=== PATIENT | male | born 1935 | race Caucasian/White ===

== ENCOUNTER 2016-05-21 19:08 | Emergency (ER) | payer MEDICARE, BC, OTHER ==
[~2016-05-21 19:08] MED LIST: /AMLO25TA PO; /LAMO20TA PO; ACET500C PO; ARTH1TAB PO; ASPI325T PO; ASPI325T5 PO; ASPI81CH PO; CAPT31TA PO; CILO100T PO; CILO50TA PO; FOLI1TAB2 PO; FOLI1TAB86 PO; IBUP40TA PO; ISOS1TAB12 PO; LAMO200T PO; LISI5TAB PO; MULTTAB4 PO; OXYCO5TA PO; PLET50TA3 PO; TELM1TAB PO; TORS10TA22 PO; VITA100T2 PO; VITA100T92 PO; VITMTA PO
[2016-05-21 20:16] LABS: BASO % 0.3 % (0.0-1.0); EOS # 0.1 K/mm3 (0.0-0.50); EOS % 1.2 % (0.0-3.0); LARGE UNSTAINED CELL # 0.1 K/mm3 (0.0-0.4); LYMPH # 1.1 K/mm3 (1.5-4.5); LYMPH % 11.5 % (24.0-44.0); MEAN CORPUSCULAR HGB CONC 33.6 g/dl (32.0-36.5); MEAN CORPUSCULAR VOLUME 95.2 fl (80.0-96.0); MONO # 0.5 K/mm3 (0.0-0.8); MONO % 5.3 % (0.0-5.0); NEUTROPHILS # 7.5 K/mm3 (1.8-7.7); NEUTROPHILS % 80.6 % (36.0-66.0); PLATELET COUNT, AUTOMATED 255 k/mm3 (150-450); RED CELL DISTRIBUTION WIDTH 12.3 % (11.5-14.5); WHITE BLOOD COUNT 9.2 K/mm3 (4.0-10.0)
[2016-05-21 20:20] LABS: ANION GAP 6 MEQ/L (8-16); BLOOD UREA NITROGEN 24 MG/DL (7-18); CALCIUM LEVEL 9.2 MG/DL (8.8-10.2); CARBON DIOXIDE LEVEL 27 MEQ/L (21-32); CHLORIDE LEVEL 105 MEQ/L (98-107); CREATININE FOR GFR 1.22 MG/DL (0.70-1.30); GLOMERULAR FILTRATION RATE > 60.0 (>35); GLUCOSE, FASTING 168 MG/DL (83-110); SODIUM LEVEL 138 MEQ/L (136-145)
--- NOTE | 2016-05-21 22:40 | REPUSA ---
CT of the head Clinical history: syncope. Comparison: 02/26/2016. Protocol: Multiple axial CT images obtained with 5 mm slice thickness were obtained through the head without administration of contrast. Findings: A right frontal subcabinet terminates in the frontal horn of the right lateral ventricle. T he ventricles and sulci are symmetric but prominent in size bilaterally. Encephalomalacia in the left middle cerebral artery distribution is stable. There are periventricular areas of low attenuation th roughout the deep white matter. There is no evidence of acute hemorrhage or infarct. There is no midl ine shift, mass effect, or extra-axial fluid collection. The osseous structures are unremarkable. The visualized paranasal sinuses and mastoid air cells are clear. Impression: No acute hemorrhage or infarct. 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
[2016-05-21] MEDS ORDERED: lamoTRIgine 25 MG TAB As Ordered ONE (22:58)
--- NOTE | 2016-05-22 00:56 | EDDOCDS ---
Physician Documentation [facility] Name: Geovani Escalante Age: 80 yrs Sex: Male : 1935 Arrival Date: 05/21/2016 Time: 19:08 Bed 4 Private MD: Celestino Marsh A. Disposition: 05/22/16 00:30 Discharged to Home/Self Care. Impression: Epilepsy, unspecified. - Condition is Stable. - Medication Reconciliation, Local Pharmacy Hours form. - Follow up: Ron Peguero; When: 1 - 2 days; Reason: Recheck today's complaints. - Problem is chronic. - Symptoms have improved. Historical: - Allergies: no known allergies; - Home Meds: 1. aspirin 81 mg Oral TbEC 1 tab once daily 2. folic acid 1 mg Oral tab 1 tab once daily 3. telmisartan 40 mg oral tab 1 tab nightly 4. lamotrigine 200 mg Oral tab 1 tab 2 times per day 5. 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 No barriers to communication noted, The patient speaks fluent [place]. - Family history: Not pertinent. - : The pt / caregiver states he / she is not on anticoagulants. Home medication list is obtained from the patient. - Exposure Risk Screening:: None identified. Vital Signs: 05/21 19:23 BP 198 / 85; Pulse 72; Resp 18; Temp 96.8(O); Pulse Ox 98% on R/A; Weight 68.95 kg / ld5 152.01 lbs (R); Height 5 ft. 10 in. (177.80 cm) (R); Pain 0/10; 19:50 BP 178 / 71 (auto/); ld5 19:50 Pulse 100 MON; Pulse Ox 97% ; ld5 20:05 BP 142 / 54 (auto/); ld5 20:05 Pulse 64 MON; Pulse Ox 96% ; ld5 20:35 BP 118 / 59 (auto/); ld5 20:35 Pulse 60 MON; Pulse Ox 94% ; ld5 20:50 BP 134 / 63 (auto/); ld5 20:50 Pulse 60 MON; Pulse Ox 95% ; ld5 21:05 BP 125 / 56 (auto/); ld5 21:05 Pulse 56 MON; Pulse Ox 96% ; ld5 21:20 BP 125 / 62 (auto/); ld5 21:20 Pulse 56 MON; Pulse Ox 96% ; ld5 21:35 Pulse 82 MON; Pulse Ox 95% ; ld5 21:35 BP 155 / 74 (auto/); ld5 21:50 BP 140 / 74 (auto/); ld5 21:53 Pulse 62 MON; Pulse Ox 98% ; ld5 22:05 Pulse 60 MON; Pulse Ox 98% ; ld5 22:05 BP 152 / 69 (auto/); ld5 22:20 Pulse 64 MON; Pulse Ox 98% ; ld5 22:20 BP 160 / 67 (auto/); ld5 22:35 BP 152 / 72 (auto/); ld5 22:36 Pulse 62 MON; Pulse Ox 98% ; ld5 22:50 Pulse 60 MON; Pulse Ox 96% ; ld5 22:50 BP 144 / 69 (auto/); ld5 23:05 BP 138 / 76 (auto/); ld5 23:05 Pulse 64 MON; Resp 18; Temp 97.1(O); Pulse Ox 95% ; Pain 0/10; ld5 23:20 BP 149 / 71 (auto/); ld5 23:20 Pulse 60 MON; Pulse Ox 95% ; ld5 23:35 BP 113 / 78 (auto/); ld5 23:50 BP 151 / 69 (auto/); ld5 23:50 Pulse 56 MON; ld5 05/22 00:05 BP 154 / 74 (auto/); ld5 00:05 Pulse 56 MON; ld5 00:50 BP 152 / 78; Pulse 70; Resp 18; Temp 97.2; Pulse Ox 95% on R/A; ld5 05/21 19:23 Body Mass Index 21.81 (68.95 kg, 177.80 cm) ld5 MDM: 05/21 19:19 ECG WITH READING ER PHYS+CARDIAG ordered. EDMS 20:02 Insurance Solicitor/Pulse Ox/q 30 min VS ordered. may 20:02 IV Saline Lock ordered. may 21: Rhythm Strip to chart ordered. may 21: Undress patient appropriately for examination ordered. may 20:04 Basic Metabolic Profile Ordered. EDMS 20:04 CBC with Diff Ordered. EDMS 20:04 Cardiac Injury Profile Ordered. EDMS 20:04 Troponin Ordered. EDMS 20:19 CT Head Without Contrast Ordered. EDMS 21:22 Basic Metabolic Profile Reviewed. cs11 21:22 CBC with Diff Reviewed. cs11 21:22 Cardiac Injury Profile Reviewed. cs11 21:22 Troponin Reviewed. cs11 21:22 NS 0.9% 500 ml IV at bolus once ordered. cs11 22:45 lamoTRIgine 100 mg PO once ordered. cs11 23:32 Financial registration complete. [facility] 05/22 00:28 CT Head Without Contrast Reviewed. cs11 Administered Medications: 05/21 21:38 Drug: NS 0.9% 500 ml [sodium chloride 0.9 % intravenous solution] Route: IV; Rate: ld5 bolus; Site: right forearm; 23:06 Follow up: IV Status: Completed infusion; IV Intake: 500ml ld5 23:06 Drug: lamoTRIgine 100 mg [lamotrigine 25 mg tablet (4 tabs)] Route: PO; ld5 Signatures: Dispatcher [employer] EDLucia Palacios RN RN jan Peters, Mary, RN RN mcp Dickerson, Laura, RN RN ld5 Ollie Pritchett DO DO [facility] Stefanie Beasley [facility] MTDD
--- NOTE | 2016-05-22 00:57 | EDDOCDS ---
Nurse's Notes [facility] Name: Geovani Escalante Age: 80 yrs Sex: Male : 1935 Arrival Date: 05/21/2016 Time: 19:08 Bed 4 Private MD: Celestino Marsh A. Diagnosis: Epilepsy, unspecified Presentation: 05/21 19:18 Presenting complaint: EMS states: Was on toilet having bowel movement--after 30 minutes mcp was unable to move but remembers everything that happened. Has history of seizures and stroke in past. FSBS--181. SL established in right wrist #20. While enroute had 8 sec episode of Vtach but pt denies any chest pain or SOB at the time of vtach. Adult Sepsis Screening: The patient does not have new or worsening altered mentation. Patient's respiratory rate is less than 22. Systolic blood pressure is greater than 100. Patient has a qSOFA score of 0- Negative Sepsis Screen. Suicide/Homicide risk assessment- the patient denies having any suicidal and/or homicidal ideations and does not present with any other emotional, behavioral or mental health complaints. Status: Patient is not a field service specialist or dependent. Transition of care: patient was not received from another setting of care. 19:18 Acuity: [facility]IL[facility] Level 2 [facility] 19:18 Method Of Arrival: Ambulance [facility] Triage Assessment: 19:28 General: Appears in no apparent distress, Behavior is cooperative. Pain: Denies pain. [facility] Historical: - Allergies: no known allergies; - Home Meds: 1. aspirin 81 mg Oral TbEC 1 tab once daily 2. folic acid 1 mg Oral tab 1 tab once daily 3. telmisartan 40 mg oral tab 1 tab nightly 4. lamotrigine 200 mg Oral tab 1 tab 2 times per day 5. 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 No barriers to communication noted, The patient speaks fluent Sami. - Family history: Not pertinent. - : The pt / caregiver states he / she is not on anticoagulants. Home medication list is obtained from the patient. - Exposure Risk Screening:: None identified. Screenin/21 00:50 Screening information is obtained from the patient, family members. Fall risk: At risk ld5 due to gait disturbance. Assistance ADL's: Requires assistance with meal preparation, this assistance is provided by family members, medication administration, assistance is provided by family members. Abuse/DV Screen: The patient / caregiver reports he/she is: not in a situation that causes fear, pain or injury. Nutritional screening: No deficits noted. Advance Directives: There is no Power of Plate And Frame Filter Operator. home support is adequate. Assessment: 05/21 19:29 General: Appears in no apparent distress, comfortable, Behavior is cooperative. Pain: mcp Denies pain. Neurological: Level of Consciousness is awake, alert, Oriented to person, place, Hydroelectric Plant Maintainer are equal bilaterally Moves all extremities. Speech is normal. Cardiovascular: Rhythm is sinus rhythm No ectopy. Respiratory: Airway is patent Respiratory effort is even, unlabored, Breath sounds are clear bilaterally. Derm: Skin is pink, warm & dry. 20:15 General: Appears in no apparent distress, Behavior is cooperative. Pain: Denies pain. ld5 Neurological: Level of Consciousness is awake, alert, obeys commands. Respiratory: Airway is patent Respiratory effort is even, unlabored. GI: Abdomen is non- distended Bowel sounds present X 4 quads. Denies nausea, vomiting. Derm: skin tear to right elbow area, covered with kerlix. 21:19 General: Pt resting in bed with eyes closed. Family members at bedside. Awaiting ld5 results. Will continue to monitor. 21:38 General: Fluids started per orders. POC discussed with pt and family. Pt repositioned ld5 for comfort. Call santos within reach. Will continue to monitor. 22:30 General: Pt appears to be sleeping. Respirations easy and unlabored. Will continue to ld5 monitor. 23:22 General: Pt medicated per orders. Tolerated well. Call santos within reach. Will continue ld5 to monitor. 05/22 00:09 General: Pt appears to be sleeping. Easily arouses to voice. Will continue to monitor. ld5 00:50 General: Appears in no apparent distress, Behavior is cooperative, pleasant. General: ld5 Discharge discussed with pt and family members. Will continue to monitor. Pain: Denies pain. Neurological: Level of Consciousness is awake. Respiratory: Airway is patent Respiratory effort is even, unlabored. Vital Signs: 05/21 19:23 BP 198 / 85; Pulse 72; Resp 18; Temp 96.8(O); Pulse Ox 98% on R/A; Weight 68.95 kg (R); ld5 Height 5 ft. 10 in. (177.80 cm) (R); Pain 0/10; 19:50 BP 178 / 71 (auto/); ld5 19:50 Pulse 100 MON; Pulse Ox 97% ; ld5 20:05 BP 142 / 54 (auto/); ld5 20:05 Pulse 64 MON; Pulse Ox 96% ; ld5 20:35 BP 118 / 59 (auto/); ld5 20:35 Pulse 60 MON; Pulse Ox 94% ; ld5 20:50 BP 134 / 63 (auto/); ld5 20:50 Pulse 60 MON; Pulse Ox 95% ; ld5 21:05 BP 125 / 56 (auto/); ld5 21:05 Pulse 56 MON; Pulse Ox 96% ; ld5 21:20 BP 125 / 62 (auto/); ld5 21:20 Pulse 56 MON; Pulse Ox 96% ; ld5 21:35 Pulse 82 MON; Pulse Ox 95% ; ld5 21:35 BP 155 / 74 (auto/); ld5 21:50 BP 140 / 74 (auto/); ld5 21:53 Pulse 62 MON; Pulse Ox 98% ; ld5 22:05 Pulse 60 MON; Pulse Ox 98% ; ld5 22:05 BP 152 / 69 (auto/); ld5 22:20 Pulse 64 MON; Pulse Ox 98% ; ld5 22:20 BP 160 / 67 (auto/); ld5 22:35 BP 152 / 72 (auto/); ld5 22:36 Pulse 62 MON; Pulse Ox 98% ; ld5 22:50 Pulse 60 MON; Pulse Ox 96% ; ld5 22:50 BP 144 / 69 (auto/); ld5 23:05 BP 138 / 76 (auto/); ld5 23:05 Pulse 64 MON; Resp 18; Temp 97.1(O); Pulse Ox 95% ; Pain 0/10; ld5 23:20 BP 149 / 71 (auto/); ld5 23:20 Pulse 60 MON; Pulse Ox 95% ; ld5 23:35 BP 113 / 78 (auto/); ld5 23:50 BP 151 / 69 (auto/); ld5 23:50 Pulse 56 MON; ld5 05/22 00:05 BP 154 / 74 (auto/); ld5 00:05 Pulse 56 MON; ld5 00:50 BP 152 / 78; Pulse 70; Resp 18; Temp 97.2; Pulse Ox 95% on R/A; ld5 05/21 19:23 Body Mass Index 21.81 (68.95 kg, 177.80 cm) ld5 Vitals: 05/21 19:23 Log In Time N/A - ambulance arrival. ld5 ED Course: 19:09 Patient visited by Valeria Greene, Seam Finisher. ml3 19:09 Celestino Marsh is Private Physician. ml3 19:09 Patient moved to Waiting ml3 19:18 Patient moved to 4 ml3 19:23 Triage Initiated mcp 19:29 Patient visited by Gabe Healy PCA. kb5 19:29 EKG done. (by ED staff). Reviewed by Ollie Pritchett DO. kb5 19:30 Maintain field IV. Dressing intact. Good blood return noted. Site clean & dry. Gauge & mcp site: #20 right wrist. 19:31 Patient visited by Manuela Garcia RN. mcp 19:31 The patient / caregiver is instructed regarding the plan of care and ED course. Patient mcp has correct armband on for positive identification. Placed in gown. Bed in low position. Call light in reach. Side rails up X2. ekg monitor tech on. Pulse ox on. NIBP on. 20:03 Ollie Pritchett DO is Attending Physician. cs11 20:03 Patient visited by Ollie Pritchett DO. cs11 21:09 Patient visited by Deja Alonzo RN. ld5 21:19 Patient visited by Deja Alonzo,YG. ld5 21:39 Patient visited by Deja Alonzo,RN. ld5 22:44 Patient visited by Deja Alonzo,YG. ld5 23:22 Patient visited by Deja Alnozo,YG. ld5 23:26 CT Head Without Contrast Returned. EDMS 05/22 00:10 Patient visited by Deja Alonzo,YG. ld5 00:29 Ron Peguero is Referral Physician. cs11 00:50 Discontinued lock intact, bleeding controlled, pressure dressing applied, No ld5 redness/swelling at site. No procedures done that require assistance. 00:52 Patient visited by Deja Alonzo RN. ld5 00:55 Patient visited by Deja Alonzo RN. ld5 Administered Medications: 05/21 21:38 Drug: NS 0.9% 500 ml [sodium chloride 0.9 % intravenous solution] Route: IV; Rate: ld5 bolus; Site: right forearm; 23:06 Follow up: IV Status: Completed infusion; IV Intake: 500ml ld5 23:06 Drug: lamoTRIgine 100 mg [lamotrigine 25 mg tablet (4 tabs)] Route: PO; ld5 Intake: 23:06 IV: 500.00ml; Total: 500.00ml. ld5 Order Results: Lab Order: Basic Metabolic Profile; SPEC'M 05/21/16 19:35 Test: GLUCOSE, FASTING; Value: 168; Range: 83-110; Abnormal: Above high normal; Units: MG/DL; Status: F Test: BLOOD UREA NITROGEN; Value: 24; Range: 7-18; Abnormal: Above high normal; Units: MG/DL; Status: F Test: CREATININE FOR GFR; Value: 1.22; Range: 0.70-1.30; Units: MG/DL; Status: F Test: GLOMERULAR FILTRATION RATE; Value: > 60.0; Range: >35; Status: F Test: SODIUM LEVEL; Value: 138; Range: 136-145; Units: MEQ/L; Status: F Test: POTASSIUM SERUM; Value: 5.0; Range: 3.5-5.1; Units: MEQ/L; Status: F Test: CHLORIDE LEVEL; Value: 105; Range: 98-107; Units: MEQ/L; Status: F Test: CARBON DIOXIDE LEVEL; Value: 27; Range: 21-32; Units: MEQ/L; Status: F Test: ANION GAP; Value: 6; Range: 8-16; Abnormal: Below low normal; Units: MEQ/L; Status: F Test: CALCIUM LEVEL; Value: 9.2; Range: 8.8-10.2; Units: MG/DL; Status: F Test Note: ; Units are mL/min/1.73 m2 Chronic Kidney Disease Staging per NKF: Stage I & II GFR >=60 Normal to Mildly Decreased Stage III GFR 30-59 Moderately Decreased Stage IV GFR 15-29 Severely Decreased Stage V GFR <15 Very Little GFR Left ESRD GFR <15 on BRICK PAVING CHECKER Lab Order: CBC with Diff; SPEC'M 05/21/16 19:35 Test: WHITE BLOOD COUNT; Value: 9.2; Range: 4.0-10.0; Units: K/mm3; Status: F Test: RED BLOOD COUNT; Value: 4.19; Range: 4.30-6.10; Abnormal: Below low normal; Units: M/mm3; Status: F Test: HEMOGLOBIN; Value: 13.4; Range: 14.0-18.0; Abnormal: Below low normal; Units: g/dl; Status: F Test: HEMATOCRIT; Value: 39.9; Range: 42.0-52.0; Abnormal: Below low normal; Units: %; Status: F Test: MEAN CORPUSCULAR VOLUME; Value: 95.2; Range: 80.0-96.0; Units: fl; Status: F Test: MEAN CORPUSCULAR HEMOGLOBIN; Value: 32.0; Range: 27.0-33.0; Units: pg; Status: F Test: MEAN CORPUSCULAR HGB CONC; Value: 33.6; Range: 32.0-36.5; Units: g/dl; Status: F Test: RED CELL DISTRIBUTION WIDTH; Value: 12.3; Range: 11.5-14.5; Units: %; Status: F Test: PLATELET COUNT, AUTOMATED; Value: 255; Range: 150-450; Units: k/mm3; Status: F Test: NEUTROPHILS %; Value: 80.6; Range: 36.0-66.0; Abnormal: Above high normal; Units: %; Status: F Test: LYMPH %; Value: 11.5; Range: 24.0-44.0; Abnormal: Below low normal; Units: %; Status: F Test: MONO %; Value: 5.3; Range: 0.0-5.0; Abnormal: Above high normal; Units: %; Status: F Test: EOS %; Value: 1.2; Range: 0.0-3.0; Units: %; Status: F Test: BASO %; Value: 0.3; Range: 0.0-1.0; Units: %; Status: F Test: LARGE UNSTAINED CELL %; Value: 1.0; Range: 0.0-4.0; Units: %; Status: F Test: NEUTROPHILS #; Value: 7.5; Range: 1.8-7.7; Units: K/mm3; Status: F Test: LYMPH #; Value: 1.1; Range: 1.5-4.5; Abnormal: Below low normal; Units: K/mm3; Status: F Test: MONO #; Value: 0.5; Range: 0.0-0.8; Units: K/mm3; Status: F Test: EOS #; Value: 0.1; Range: 0.0-0.50; Units: K/mm3; Status: F Test: BASO #; Value: 0.0; Range: 0.0-0.2; Units: K/mm3; Status: F Test: LARGE UNSTAINED CELL #; Value: 0.1; Range: 0.0-0.4; Units: K/mm3; Status: F Lab Order: Cardiac Injury Profile; [facility] 05/21/16 19:35 Test: CPK CREATINE PHOSPHOKINASE; Value: 135; Range: 39-308; Units: U/L; Status: F Test: CK-MB VALUE MASS; Value: 2.1; Range: 0.0-3.6; Units: NG/ML; Status: F Test: MB/CK RELATIVE INDEX; Value: 1.55; Range: < OR =4; Status: F Test Note: ; DIAGNOSIS CRITERIA MMB ng/ml Relative Index (RI) NON-AMI < or = 5 N/A WIGGINS ZONE > 5 < or = 4 AMI > 5 > 4 Lab Order: Troponin; SPEC' 05/21/16 19:35 Test: TROPONIN I; Value: < 0.02; Range: < 0.10; Units: NG/ML; Status: F Test Note: ; Troponin I Reference Interval for [email or web address] LOCI: 99th Percentile= 0.00-0.045 ng/ml Risk Stratification: <= 0.10 ng/ml Decreased Risk for Adverse Clinical Events. 0.10-1.50 ng/ml Increased Risk for Adverse Clinical Events. Evaluation of additional criterion and/or repeat testing in 2-6 hours is suggested to rule out myocardial damage. >= 1.50 ng/ml Indicative of Myocardial Injury. Radiology Order: CT Head Without Contrast Test: CT Head Without Contrast REASON FOR EXAMINATION: Syncope; ; CT of the head; Clinical history: syncope.; Comparison: 02/26/2016.; Protocol: Multiple axial CT images obtained with 5 mm slice thickness were obtained through the head; without administration of contrast.; Findings: A right frontal subcabinet terminates in the frontal horn of the right lateral ventricle. T; he ventricles and sulci are symmetric but prominent in size bilaterally. Encephalomalacia in the left; middle cerebral artery distribution is stable. There are periventricular areas of low attenuation th; roughout the deep white matter. There is no evidence of acute hemorrhage or infarct. There is no midl; ine shift, mass effect, or extra-axial fluid collection. The osseous structures are unremarkable. The; visualized paranasal sinuses and mastoid air cells are clear.; Impression: No acute hemorrhage or infarct. 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 cs11 00:50 Discharge Assessment: Patient awake, alert and oriented x 3. No cognitive and/or ld5 functional deficits noted. Patient verbalized understanding of disposition instructions. patient administered narcotics - no. The following High Risk Discharge criteria are identified: None. Discharged to home with family. Condition: stable. Discharge instructions given to patient, family, Instructed on discharge instructions, follow up and referral plans. Demonstrated understanding of instructions, Pt was receptive of discharge instructions/ teaching. CT Study completed. Property :Personal belongings accompany Pt. 00:55 Patient left the ED. ld5 Signatures: Dispatcher [employer] EDMS Manuela Garcia, RN RN Valeria Subramanian, Seam Finisher Unit ml3 Gabe Healy, ESTHER PRIVATE CLIENT ADVISOR [email or web address] Deja Alonzo RN RN ld5 Ollie Pritchett DO DO cs11 MTDD
--- NOTE | 2016-05-22 08:15 | ECGEPIP ---
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
--- NOTE | 2016-05-24 01:57 | EDDOCDS ---
Nurse's Notes [facility] Name: Morgan Rodas Age: 80 yrs Sex: Male : 1935 Arrival Date: 05/21/2016 Time: 19:08 Bed 4 Private MD: Celestino Marsh A. Diagnosis: Epilepsy, unspecified Presentation: 05/21 19:18 Presenting complaint: EMS states: Was on toilet having bowel movement--after 30 minutes mcp was unable to move but remembers everything that happened. Has history of seizures and stroke in past. FSBS--181. SL established in right wrist #20. While enroute had 8 sec episode of Vtach but pt denies any chest pain or SOB at the time of vtach. Adult Sepsis Screening: The patient does not have new or worsening altered mentation. Patient's respiratory rate is less than 22. Systolic blood pressure is greater than 100. Patient has a qSOFA score of 0- Negative Sepsis Screen. Suicide/Homicide risk assessment- the patient denies having any suicidal and/or homicidal ideations and does not present with any other emotional, behavioral or mental health complaints. Status: Patient is not a youth services librarian or dependent. Transition of care: patient was not received from another setting of care. 19:18 Acuity: WILBUR Level 2 [facility] 19:18 Method Of Arrival: Ambulance [facility] Triage Assessment: 19:28 General: Appears in no apparent distress, Behavior is cooperative. Pain: Denies pain. [facility] Historical: - Allergies: no known allergies; - Home Meds: 1. aspirin 81 mg Oral TbEC 1 tab once daily 2. folic acid 1 mg Oral tab 1 tab once daily 3. telmisartan 40 mg oral tab 1 tab nightly 4. lamotrigine 200 mg Oral tab 1 tab 2 times per day 5. 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 No barriers to communication noted, The patient speaks fluent Persian. - Family history: Not pertinent. - : The pt / caregiver states he / she is not on anticoagulants. Home medication list is obtained from the patient. - Exposure Risk Screening:: None identified. Screenin/21 00:50 Screening information is obtained from the patient, family members. Fall risk: At risk ld5 due to gait disturbance. Assistance ADL's: Requires assistance with meal preparation, this assistance is provided by family members, medication administration, assistance is provided by family members. Abuse/DV Screen: The patient / caregiver reports he/she is: not in a situation that causes fear, pain or injury. Nutritional screening: No deficits noted. Advance Directives: There is no Power of Instructor Product Inspection. home support is adequate. Assessment: 05/21 19:29 General: Appears in no apparent distress, comfortable, Behavior is cooperative. Pain: mcp Denies pain. Neurological: Level of Consciousness is awake, alert, Oriented to person, place, Accounts Payable Or Receivable Clerk are equal bilaterally Moves all extremities. Speech is normal. Cardiovascular: Rhythm is sinus rhythm No ectopy. Respiratory: Airway is patent Respiratory effort is even, unlabored, Breath sounds are clear bilaterally. Derm: Skin is pink, warm & dry. 20:15 General: Appears in no apparent distress, Behavior is cooperative. Pain: Denies pain. ld5 Neurological: Level of Consciousness is awake, alert, obeys commands. Respiratory: Airway is patent Respiratory effort is even, unlabored. GI: Abdomen is non- distended Bowel sounds present X 4 quads. Denies nausea, vomiting. Derm: skin tear to right elbow area, covered with kerlix. 21:19 General: Pt resting in bed with eyes closed. Family members at bedside. Awaiting ld5 results. Will continue to monitor. 21:38 General: Fluids started per orders. POC discussed with pt and family. Pt repositioned ld5 for comfort. Call santos within reach. Will continue to monitor. 22:30 General: Pt appears to be sleeping. Respirations easy and unlabored. Will continue to ld5 monitor. 23:22 General: Pt medicated per orders. Tolerated well. Call santos within reach. Will continue ld5 to monitor. 05/22 00:09 General: Pt appears to be sleeping. Easily arouses to voice. Will continue to monitor. ld5 00:50 General: Appears in no apparent distress, Behavior is cooperative, pleasant. General: ld5 Discharge discussed with pt and family members. Will continue to monitor. Pain: Denies pain. Neurological: Level of Consciousness is awake. Respiratory: Airway is patent Respiratory effort is even, unlabored. Vital Signs: 05/21 19:23 BP 198 / 85; Pulse 72; Resp 18; Temp 96.8(O); Pulse Ox 98% on R/A; Weight 68.95 kg (R); ld5 Height 5 ft. 10 in. (177.80 cm) (R); Pain 0/10; 19:50 BP 178 / 71 (auto/); ld5 19:50 Pulse 100 MON; Pulse Ox 97% ; ld5 20:05 BP 142 / 54 (auto/); ld5 20:05 Pulse 64 MON; Pulse Ox 96% ; ld5 20:35 BP 118 / 59 (auto/); ld5 20:35 Pulse 60 MON; Pulse Ox 94% ; ld5 20:50 BP 134 / 63 (auto/); ld5 20:50 Pulse 60 MON; Pulse Ox 95% ; ld5 21:05 BP 125 / 56 (auto/); ld5 21:05 Pulse 56 MON; Pulse Ox 96% ; ld5 21:20 BP 125 / 62 (auto/); ld5 21:20 Pulse 56 MON; Pulse Ox 96% ; ld5 21:35 Pulse 82 MON; Pulse Ox 95% ; ld5 21:35 BP 155 / 74 (auto/); ld5 21:50 BP 140 / 74 (auto/); ld5 21:53 Pulse 62 MON; Pulse Ox 98% ; ld5 22:05 Pulse 60 MON; Pulse Ox 98% ; ld5 22:05 BP 152 / 69 (auto/); ld5 22:20 Pulse 64 MON; Pulse Ox 98% ; ld5 22:20 BP 160 / 67 (auto/); ld5 22:35 BP 152 / 72 (auto/); ld5 22:36 Pulse 62 MON; Pulse Ox 98% ; ld5 22:50 Pulse 60 MON; Pulse Ox 96% ; ld5 22:50 BP 144 / 69 (auto/); ld5 23:05 BP 138 / 76 (auto/); ld5 23:05 Pulse 64 MON; Resp 18; Temp 97.1(O); Pulse Ox 95% ; Pain 0/10; ld5 23:20 BP 149 / 71 (auto/); ld5 23:20 Pulse 60 MON; Pulse Ox 95% ; ld5 23:35 BP 113 / 78 (auto/); ld5 23:50 BP 151 / 69 (auto/); ld5 23:50 Pulse 56 MON; ld5 05/22 00:05 BP 154 / 74 (auto/); ld5 00:05 Pulse 56 MON; ld5 00:50 BP 152 / 78; Pulse 70; Resp 18; Temp 97.2; Pulse Ox 95% on R/A; ld5 05/21 19:23 Body Mass Index 21.81 (68.95 kg, 177.80 cm) ld5 Vitals: 05/21 19:23 Log In Time N/A - ambulance arrival. ld5 ED Course: 19:09 Patient visited by Valeria Greene, Nurse General Duty. ml3 19:09 Celestino Marsh is Private Physician. ml3 19:09 Patient moved to Waiting ml3 19:18 Patient moved to 4 ml3 19:23 Triage Initiated mcp 19:29 Patient visited by Gabe Healy PCA. kb5 19:29 EKG done. (by ED staff). Reviewed by Ollie Miller DO. kb5 19:30 Maintain field IV. Dressing intact. Good blood return noted. Site clean & dry. Gauge & mcp site: #20 right wrist. 19:31 Patient visited by Manuela Garcia RN. mcp 19:31 The patient / caregiver is instructed regarding the plan of care and ED course. Patient mcp has correct armband on for positive identification. Placed in gown. Bed in low position. Call light in reach. Side rails up X2. monitoring engineer on. Pulse ox on. NIBP on. 20:03 Ollie Miller DO is Attending Physician. cs11 20:03 Patient visited by Ollie Miller DO. cs11 21:09 Patient visited by Deja Alonzo RN. ld5 21:19 Patient visited by Deja Alonzo,YG. ld5 21:39 Patient visited by Deja Alonzo,RN. ld5 22:44 Patient visited by Deja Alonzo,YG. ld5 23:22 Patient visited by Deja Alonzo,YG. ld5 23:26 CT Head Without Contrast Returned. EDMS 05/22 00:10 Patient visited by Deja Alonzo,YG. ld5 00:29 Ron Peguero is Referral Physician. cs11 00:50 Discontinued lock intact, bleeding controlled, pressure dressing applied, No ld5 redness/swelling at site. No procedures done that require assistance. 00:52 Patient visited by Deja Alonzo RN. ld5 00:55 Patient visited by Deja Alonzo RN. ld5 01:00 [facility] Payment Agreement was scanned into [employer] and attached to record. [facility] 08:42 EKG-ADULT Returned. EDMS 10:45 T-Sheet-- Draft Copy was scanned into [employer] and attached to record. 10:46 ECG/EKG was scanned into [employer] and attached to record. gb Administered Medications: 05/21 21:38 Drug: NS 0.9% 500 ml [sodium chloride 0.9 % intravenous solution] Route: IV; Rate: ld5 bolus; Site: right forearm; 23:06 Follow up: IV Status: Completed infusion; IV Intake: 500ml ld5 23:06 Drug: lamoTRIgine 100 mg [lamotrigine 25 mg tablet (4 tabs)] Route: PO; ld5 Intake: 23:06 IV: 500.00ml; Total: 500.00ml. ld5 Order Results: Lab Order: Basic Metabolic Profile; SPEC'M 05/21/16 19:35 Test: GLUCOSE, FASTING; Value: 168; Range: 83-110; Abnormal: Above high normal; Units: MG/DL; Status: F Test: BLOOD UREA NITROGEN; Value: 24; Range: 7-18; Abnormal: Above high normal; Units: MG/DL; Status: F Test: CREATININE FOR GFR; Value: 1.22; Range: 0.70-1.30; Units: MG/DL; Status: F Test: GLOMERULAR FILTRATION RATE; Value: > 60.0; Range: >35; Status: F Test: SODIUM LEVEL; Value: 138; Range: 136-145; Units: MEQ/L; Status: F Test: POTASSIUM SERUM; Value: 5.0; Range: 3.5-5.1; Units: MEQ/L; Status: F Test: CHLORIDE LEVEL; Value: 105; Range: 98-107; Units: MEQ/L; Status: F Test: CARBON DIOXIDE LEVEL; Value: 27; Range: 21-32; Units: MEQ/L; Status: F Test: ANION GAP; Value: 6; Range: 8-16; Abnormal: Below low normal; Units: MEQ/L; Status: F Test: CALCIUM LEVEL; Value: 9.2; Range: 8.8-10.2; Units: MG/DL; Status: F Test Note: ; Units are mL/min/1.73 m2 Chronic Kidney Disease Staging per NKF: Stage I & II GFR >=60 Normal to Mildly Decreased Stage III GFR 30-59 Moderately Decreased Stage IV GFR 15-29 Severely Decreased Stage V GFR <15 Very Little GFR Left ESRD GFR <15 on TELEPHONE STATION REPAIRER Lab Order: CBC with Diff; SPEC'M 05/21/16 19:35 Test: WHITE BLOOD COUNT; Value: 9.2; Range: 4.0-10.0; Units: K/mm3; Status: F Test: RED BLOOD COUNT; Value: 4.19; Range: 4.30-6.10; Abnormal: Below low normal; Units: M/mm3; Status: F Test: HEMOGLOBIN; Value: 13.4; Range: 14.0-18.0; Abnormal: Below low normal; Units: g/dl; Status: F Test: HEMATOCRIT; Value: 39.9; Range: 42.0-52.0; Abnormal: Below low normal; Units: %; Status: F Test: MEAN CORPUSCULAR VOLUME; Value: 95.2; Range: 80.0-96.0; Units: fl; Status: F Test: MEAN CORPUSCULAR HEMOGLOBIN; Value: 32.0; Range: 27.0-33.0; Units: pg; Status: F Test: MEAN CORPUSCULAR HGB CONC; Value: 33.6; Range: 32.0-36.5; Units: g/dl; Status: F Test: RED CELL DISTRIBUTION WIDTH; Value: 12.3; Range: 11.5-14.5; Units: %; Status: F Test: PLATELET COUNT, AUTOMATED; Value: 255; Range: 150-450; Units: k/mm3; Status: F Test: NEUTROPHILS %; Value: 80.6; Range: 36.0-66.0; Abnormal: Above high normal; Units: %; Status: F Test: LYMPH %; Value: 11.5; Range: 24.0-44.0; Abnormal: Below low normal; Units: %; Status: F Test: MONO %; Value: 5.3; Range: 0.0-5.0; Abnormal: Above high normal; Units: %; Status: F Test: EOS %; Value: 1.2; Range: 0.0-3.0; Units: %; Status: F Test: BASO %; Value: 0.3; Range: 0.0-1.0; Units: %; Status: F Test: LARGE UNSTAINED CELL %; Value: 1.0; Range: 0.0-4.0; Units: %; Status: F Test: NEUTROPHILS #; Value: 7.5; Range: 1.8-7.7; Units: K/mm3; Status: F Test: LYMPH #; Value: 1.1; Range: 1.5-4.5; Abnormal: Below low normal; Units: K/mm3; Status: F Test: MONO #; Value: 0.5; Range: 0.0-0.8; Units: K/mm3; Status: F Test: EOS #; Value: 0.1; Range: 0.0-0.50; Units: K/mm3; Status: F Test: BASO #; Value: 0.0; Range: 0.0-0.2; Units: K/mm3; Status: F Test: LARGE UNSTAINED CELL #; Value: 0.1; Range: 0.0-0.4; Units: K/mm3; Status: F Lab Order: Cardiac Injury Profile; SPEC'M 05/21/16 19:35 Test: CPK CREATINE PHOSPHOKINASE; Value: 135; Range: 39-308; Units: U/L; Status: F Test: CK-MB VALUE MASS; Value: 2.1; Range: 0.0-3.6; Units: NG/ML; Status: F Test: MB/CK RELATIVE INDEX; Value: 1.55; Range: < OR =4; Status: F Test Note: ; DIAGNOSIS CRITERIA MMB ng/ml Relative Index (RI) NON-AMI < or = 5 N/A WIGGINS ZONE > 5 < or = 4 AMI > 5 > 4 Lab Order: Troponin; SPEC'M 05/21/16 19:35 Test: TROPONIN I; Value: < 0.02; Range: < 0.10; Units: NG/ML; Status: F Test Note: ; Troponin I Reference Interval for [employer] [place] LOCI: 99th Percentile= 0.00-0.045 ng/ml Risk Stratification: <= 0.10 ng/ml Decreased Risk for Adverse Clinical Events. 0.10-1.50 ng/ml Increased Risk for Adverse Clinical Events. Evaluation of additional criterion and/or repeat testing in 2-6 hours is suggested to rule out myocardial damage. >= 1.50 ng/ml Indicative of Myocardial Injury. Radiology Order: EKG-ADULT Test: EKG-ADULT REASON FOR EXAMINATION: Syncope; Stationary ECG Study; [facility] - ED; ; Test Date: 2016-05-21; Pat Name: MORGAN RODAS Department:; Room: -; Gender: M Contracts Paralegal: KB; : 1935 Requested By: OLLIE MILLER; Order Number: [id number] Reading MD: Maddy Andrews; Measurements; Intervals [place]; Rate: 67 P: 58; ME: 165 QRS: 11; QRSD: 90 T: 43; QT: 370; QTc: 392; Interpretive Statements; SINUS RHYTHM; SIMIALR 02/27/16; Electronically Signed On 05-22-2016 8:14:52 EST by Maddy Andrews; Radiology Order: CT Head Without Contrast Test: CT Head Without Contrast REASON FOR EXAMINATION: Syncope; ; CT of the head; Clinical history: syncope.; Comparison: 02/26/2016.; Protocol: Multiple axial CT images obtained with 5 mm slice thickness were obtained through the head; without administration of contrast.; Findings: A right frontal subcabinet terminates in the frontal horn of the right lateral ventricle. T; he ventricles and sulci are symmetric but prominent in size bilaterally. Encephalomalacia in the left; middle cerebral artery distribution is stable. There are periventricular areas of low attenuation th; roughout the deep white matter. There is no evidence of acute hemorrhage or infarct. There is no midl; ine shift, mass effect, or extra-axial fluid collection. The osseous structures are unremarkable. The; visualized paranasal sinuses and mastoid air cells are clear.; Impression: No acute hemorrhage or infarct. 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 11 00:50 Discharge Assessment: Patient awake, alert and oriented x 3. No cognitive and/or ld5 functional deficits noted. Patient verbalized understanding of disposition instructions. patient administered narcotics - no. The following High Risk Discharge criteria are identified: None. Discharged to home with family. Condition: stable. Discharge instructions given to patient, family, Instructed on discharge instructions, follow up and referral plans. Demonstrated understanding of instructions, Pt was receptive of discharge instructions/ teaching. CT Study completed. Property :Personal belongings accompany Pt. 00:55 Patient left the ED. ld5 Signatures: Dispatcher [employer] EDManuela Colbert, YG RN Constanza Quintanilla, Valeria Oorurke, Nurse General Duty Unit ml3 Gabe Healy, PHARMACY ANCILLARY PHARMACY ANCILLARY kb5 Deja Alonzo RN RN ld5 Ollie Miller, DO [facility] Stefanie Beasley [facility] Chart Complete [facility]
--- NOTE | 2016-05-24 01:57 | EDDOCDS ---
Physician Documentation [facility] Name: Geovani Escalante Age: 80 yrs Sex: Male : 1935 Arrival Date: 05/21/2016 Time: 19:08 Bed 4 Private MD: Celestino Marsh A. Disposition: 05/22/16 00:30 Discharged to Home/Self Care. Impression: Epilepsy, unspecified. - Condition is Stable. - Medication Reconciliation, Local Pharmacy Hours form. - Follow up: Ron Peguero; When: 1 - 2 days; Reason: Recheck today's complaints. - Problem is chronic. - Symptoms have improved. Historical: - Allergies: no known allergies; - Home Meds: 1. aspirin 81 mg Oral TbEC 1 tab once daily 2. folic acid 1 mg Oral tab 1 tab once daily 3. telmisartan 40 mg oral tab 1 tab nightly 4. lamotrigine 200 mg Oral tab 1 tab 2 times per day 5. 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 No barriers to communication noted, The patient speaks fluent Wallisian. - Family history: Not pertinent. - : The pt / caregiver states he / she is not on anticoagulants. Home medication list is obtained from the patient. - Exposure Risk Screening:: None identified. Vital Signs: 05/21 19:23 BP 198 / 85; Pulse 72; Resp 18; Temp 96.8(O); Pulse Ox 98% on R/A; Weight 68.95 kg / ld5 152.01 lbs (R); Height 5 ft. 10 in. (177.80 cm) (R); Pain 0/10; 19:50 BP 178 / 71 (auto/); ld5 19:50 Pulse 100 MON; Pulse Ox 97% ; ld5 20:05 BP 142 / 54 (auto/); ld5 20:05 Pulse 64 MON; Pulse Ox 96% ; ld5 20:35 BP 118 / 59 (auto/); ld5 20:35 Pulse 60 MON; Pulse Ox 94% ; ld5 20:50 BP 134 / 63 (auto/); ld5 20:50 Pulse 60 MON; Pulse Ox 95% ; ld5 21:05 BP 125 / 56 (auto/); ld5 21:05 Pulse 56 MON; Pulse Ox 96% ; ld5 21:20 BP 125 / 62 (auto/); ld5 21:20 Pulse 56 MON; Pulse Ox 96% ; ld5 21:35 Pulse 82 MON; Pulse Ox 95% ; ld5 21:35 BP 155 / 74 (auto/); ld5 21:50 BP 140 / 74 (auto/); ld5 21:53 Pulse 62 MON; Pulse Ox 98% ; ld5 22:05 Pulse 60 MON; Pulse Ox 98% ; ld5 22:05 BP 152 / 69 (auto/); ld5 22:20 Pulse 64 MON; Pulse Ox 98% ; ld5 22:20 BP 160 / 67 (auto/); ld5 22:35 BP 152 / 72 (auto/); ld5 22:36 Pulse 62 MON; Pulse Ox 98% ; ld5 22:50 Pulse 60 MON; Pulse Ox 96% ; ld5 22:50 BP 144 / 69 (auto/); ld5 23:05 BP 138 / 76 (auto/); ld5 23:05 Pulse 64 MON; Resp 18; Temp 97.1(O); Pulse Ox 95% ; Pain 0/10; ld5 23:20 BP 149 / 71 (auto/); ld5 23:20 Pulse 60 MON; Pulse Ox 95% ; ld5 23:35 BP 113 / 78 (auto/); ld5 23:50 BP 151 / 69 (auto/); ld5 23:50 Pulse 56 MON; ld5 05/22 00:05 BP 154 / 74 (auto/); ld5 00:05 Pulse 56 MON; ld5 00:50 BP 152 / 78; Pulse 70; Resp 18; Temp 97.2; Pulse Ox 95% on R/A; ld5 05/21 19:23 Body Mass Index 21.81 (68.95 kg, 177.80 cm) ld5 MDM: 05/21 19:19 ECG WITH READING ER PHYS+CARDIAG ordered. EDMS 20:02 Automotive Sales Specialist/Pulse Ox/q 30 min VS ordered. may 20:02 IV Saline Lock ordered. may 21: Rhythm Strip to chart ordered. may 21: Undress patient appropriately for examination ordered. may 20:04 Basic Metabolic Profile Ordered. EDMS 20:04 CBC with Diff Ordered. EDMS 20:04 Cardiac Injury Profile Ordered. EDMS 20:04 Troponin Ordered. EDMS 20:19 CT Head Without Contrast Ordered. EDMS 21:22 Basic Metabolic Profile Reviewed. cs11 21:22 CBC with Diff Reviewed. cs11 21:22 Cardiac Injury Profile Reviewed. cs11 21:22 Troponin Reviewed. cs11 21:22 NS 0.9% 500 ml IV at bolus once ordered. cs11 22:45 lamoTRIgine 100 mg PO once ordered. cs11 23:32 Financial registration complete. [facility] 05/22 00:28 CT Head Without Contrast Reviewed. cs11 01:00 [facility] Payment Agreement was scanned into [email or web address] and attached to record. [facility] 10:45 T-Sheet-- Draft Copy was scanned into [email or web address] and attached to record. gb 10:46 ECG/EKG was scanned into [email or web address] and attached to record. gb Administered Medications: 05/21 21:38 Drug: NS 0.9% 500 ml [sodium chloride 0.9 % intravenous solution] Route: IV; Rate: ld5 bolus; Site: right forearm; 23:06 Follow up: IV Status: Completed infusion; IV Intake: 500ml ld5 23:06 Drug: lamoTRIgine 100 mg [lamotrigine 25 mg tablet (4 tabs)] Route: PO; ld5 Signatures: Dispatcher [employer] Lucia Mixon RN RN jan Peters, Mary, RN RN mcp Barnhardt, Gloria, Ben Reg Deja Paulino RN RN ld5 Ollie Pritchett DO DO [facility] Stefanie Beasley [facility] The chart was reviewed and I authenticate all verbal orders and agree with the evaluation and treatment provided.Attachments: 05/22 01:00 [facility] Payment Agreement [facility] 10:45 T-Sheet-- Draft Copy gb 10:46 ECG/EKG gb Chart Complete MTDD
--- NOTE | 2016-05-24 01:57 | EDDOCDS ---
Physician Documentation [facility] Name: Geovani Escalante Age: 80 yrs Sex: Male : 1935 Arrival Date: 05/21/2016 Time: 19:08 Bed 4 Private MD: Celestino Marsh A. Disposition: 05/22/16 00:30 Discharged to Home/Self Care. Impression: Epilepsy, unspecified. - Condition is Stable. - Medication Reconciliation, Local Pharmacy Hours form. - Follow up: Ron Peguero; When: 1 - 2 days; Reason: Recheck today's complaints. - Problem is chronic. - Symptoms have improved. Historical: - Allergies: no known allergies; - Home Meds: 1. aspirin 81 mg Oral TbEC 1 tab once daily 2. folic acid 1 mg Oral tab 1 tab once daily 3. telmisartan 40 mg oral tab 1 tab nightly 4. lamotrigine 200 mg Oral tab 1 tab 2 times per day 5. 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 No barriers to communication noted, The patient speaks fluent Marshallese. - Family history: Not pertinent. - : The pt / caregiver states he / she is not on anticoagulants. Home medication list is obtained from the patient. - Exposure Risk Screening:: None identified. Vital Signs: 05/21 19:23 BP 198 / 85; Pulse 72; Resp 18; Temp 96.8(O); Pulse Ox 98% on R/A; Weight 68.95 kg / ld5 152.01 lbs (R); Height 5 ft. 10 in. (177.80 cm) (R); Pain 0/10; 19:50 BP 178 / 71 (auto/); ld5 19:50 Pulse 100 MON; Pulse Ox 97% ; ld5 20:05 BP 142 / 54 (auto/); ld5 20:05 Pulse 64 MON; Pulse Ox 96% ; ld5 20:35 BP 118 / 59 (auto/); ld5 20:35 Pulse 60 MON; Pulse Ox 94% ; ld5 20:50 BP 134 / 63 (auto/); ld5 20:50 Pulse 60 MON; Pulse Ox 95% ; ld5 21:05 BP 125 / 56 (auto/); ld5 21:05 Pulse 56 MON; Pulse Ox 96% ; ld5 21:20 BP 125 / 62 (auto/); ld5 21:20 Pulse 56 MON; Pulse Ox 96% ; ld5 21:35 Pulse 82 MON; Pulse Ox 95% ; ld5 21:35 BP 155 / 74 (auto/); ld5 21:50 BP 140 / 74 (auto/); ld5 21:53 Pulse 62 MON; Pulse Ox 98% ; ld5 22:05 Pulse 60 MON; Pulse Ox 98% ; ld5 22:05 BP 152 / 69 (auto/); ld5 22:20 Pulse 64 MON; Pulse Ox 98% ; ld5 22:20 BP 160 / 67 (auto/); ld5 22:35 BP 152 / 72 (auto/); ld5 22:36 Pulse 62 MON; Pulse Ox 98% ; ld5 22:50 Pulse 60 MON; Pulse Ox 96% ; ld5 22:50 BP 144 / 69 (auto/); ld5 23:05 BP 138 / 76 (auto/); ld5 23:05 Pulse 64 MON; Resp 18; Temp 97.1(O); Pulse Ox 95% ; Pain 0/10; ld5 23:20 BP 149 / 71 (auto/); ld5 23:20 Pulse 60 MON; Pulse Ox 95% ; ld5 23:35 BP 113 / 78 (auto/); ld5 23:50 BP 151 / 69 (auto/); ld5 23:50 Pulse 56 MON; ld5 05/22 00:05 BP 154 / 74 (auto/); ld5 00:05 Pulse 56 MON; ld5 00:50 BP 152 / 78; Pulse 70; Resp 18; Temp 97.2; Pulse Ox 95% on R/A; ld5 05/21 19:23 Body Mass Index 21.81 (68.95 kg, 177.80 cm) ld5 MDM: 05/21 19:19 ECG WITH READING ER PHYS+CARDIAG ordered. EDMS 20:02 Account Executive Key Accounts/Pulse Ox/q 30 min VS ordered. may 20:02 IV Saline Lock ordered. may 21: Rhythm Strip to chart ordered. may 21: Undress patient appropriately for examination ordered. may 20:04 Basic Metabolic Profile Ordered. EDMS 20:04 CBC with Diff Ordered. EDMS 20:04 Cardiac Injury Profile Ordered. EDMS 20:04 Troponin Ordered. EDMS 20:19 CT Head Without Contrast Ordered. EDMS 21:22 Basic Metabolic Profile Reviewed. cs11 21:22 CBC with Diff Reviewed. cs11 21:22 Cardiac Injury Profile Reviewed. cs11 21:22 Troponin Reviewed. cs11 21:22 NS 0.9% 500 ml IV at bolus once ordered. cs11 22:45 lamoTRIgine 100 mg PO once ordered. cs11 23:32 Financial registration complete. [facility] 05/22 00:28 CT Head Without Contrast Reviewed. cs11 01:00 [facility] Payment Agreement was scanned into [employer] and attached to record. [facility] 10:45 T-Sheet-- Draft Copy was scanned into [employer] and attached to record. gb 10:46 ECG/EKG was scanned into [employer] and attached to record. gb Administered Medications: 05/21 21:38 Drug: NS 0.9% 500 ml [sodium chloride 0.9 % intravenous solution] Route: IV; Rate: ld5 bolus; Site: right forearm; 23:06 Follow up: IV Status: Completed infusion; IV Intake: 500ml ld5 23:06 Drug: lamoTRIgine 100 mg [lamotrigine 25 mg tablet (4 tabs)] Route: PO; ld5 Signatures: Dispatcher [employer] Lucia Mixon RN RN jan Peters, Mary, RN RN mcp Barnhardt, Gloria, Ben Reg Deja Paulino RN RN ld5 Ollie Pritchett DO DO [facility] Stefanie Beasley [facility] The chart was reviewed and I authenticate all verbal orders and agree with the evaluation and treatment provided.Attachments: 05/22 01:00 [facility] Payment Agreement [facility] 10:45 T-Sheet-- Draft Copy gb 10:46 ECG/EKG gb Chart Complete MTDD
== END 2016-05-22 00:55 | disposition home or self-care (01) ==
LOC: M ED 19:08
DX: G40.909 Epilepsy, unspecified, not intractable, without status epilepticus (principal); I10 Essential (primary) hypertension; Z86.73 Personal history of transient ischemic attack (TIA), and cerebral infarction without residual deficits; Z85.47 Personal history of malignant neoplasm of testis; Z79.899 Other long term (current) drug therapy; Z79.82 Long term (current) use of aspirin

== ENCOUNTER 2016-07-09 14:57 | Emergency (ER) | payer MEDICARE, BC, OTHER ==
[~2016-07-09] VITALS: Ht 177.8 cm; Wt 69.4 kg
[2016-07-09] MEDS ORDERED: AMMO12CR4 (15:26)
[2016-07-09] MEDS ORDERED: VITATAB11 PO (15:26)
[2016-07-09] MEDS ORDERED: AMLO5TAB2 PO (15:26)
[2016-07-09] MEDS ORDERED: SERT50TA PO (15:26)
[2016-07-09] MEDS ORDERED: triamterene PO (15:26)
[2016-07-09] MEDS ORDERED: CILO50TA PO (15:26)
--- NOTE | 2016-07-09 16:27 | REP ---
CT HEAD WITHOUT CONTRAST: HISTORY: Trauma. COMPARISON: 05/21/2016 An area of decreased attenuation is present in the left temporal and parietal lobes. There is dilatation of the overlying cortical sulci and body of the left lateral ventricle. This represents an old infarction. Areas of decreased attenuation are present in the periventricular and subcortical white matter. This represents small vessel ischemic disease. There is no intraparenchymal hemorrhage, mass, or midline shift. The ventricular system and cortical sulci are dilated consistent with moderate volume loss. 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 There is no hydrocephalus. There is no extracerebral collection. There is no fracture. 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 Minimal mucosal thickening is present in the maxillary sinuses. IMPRESSION: 1. 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 2. Small vessel ischemic disease. 3. Moderate volume loss. Signed by Michael Bryan MD 07/09/2016 04:34 P
[2016-07-09] MEDS ORDERED: PERCOCET 5MG/325MG TAB PO ONE (16:30)
--- NOTE | 2016-07-09 16:34 | REP ---
CT CERVICAL SPINE WITHOUT CONTRAST: HISTORY: Trauma. There is no acute fracture or subluxation. A disc bulge is present at the C3-4 level. Disc bulges with associated osteophyte formation are present at the C4-5 through C6-7 levels. There is minimal narrowing of the spinal canal. Uncinate process and or facet hypertrophy are present at the C3-4 through C7-T1 levels. These findings produce minimal to severe narrowing of the neural foramina. The C4-5 through C6-7 intervertebral discs are decreased in height consistent with disc degeneration. IMPRESSION: 1. There is no acute fracture or subluxation. 2. There is cervical spondylosis at the C3-4 through C7-T1 levels. Signed by Michael Bryan MD 07/09/2016 04:36 P
--- NOTE | 2016-07-09 17:18 | REP ---
Right elbow series: Four views: History: Trauma. Findings: There is marked soft tissue swelling about the medial aspect of the elbow and proximal forearm consistent with significant soft tissue injury. There is no evidence of joint effusion. There is olecranon process spurring. No fracture or subluxation is seen. There is diffuse osteopenia. Some chondrocalcinosis is noted. There is medial and lateral epicondylar spurring and a tiny accessory ossicle is seen at the lateral epicondyle. Impression: No fracture noted. Marked soft tissue swelling at the medial aspect of the elbow and proximal forearm. Chondrocalcinosis and medial and lateral epicondylar spurring. Signed by Hammad Burgos MD 07/09/2016 05:19 P
[2016-07-09] MEDS ORDERED: NORCOTAB PO (18:36)
--- NOTE | 2016-07-09 20:20 | REPUSA ---
CLINICAL HISTORY: Pain and swelling. TECHNIQUE: Multiple axial CT images were obtained without IV contrast material. MPR coronal and sagit van sequences are obtained. COMMENTS: There is a limited study due to patient positioning. Diffuse subcutaneous and deep interstitial soft tissue swelling is seen. This is compatible cellulit is. There is no evidence of fracture or dislocation. There are no lytic or blastic lesions. No soft tissu e masses or fluid collections are present. There is no evidence of arthritis. Joint spaces are preserved. IMPRESSION: Limited study. Diffuse subcutaneous and deep interstitial soft tissue swelling is seen. This is compatible cellulit is. Consider follow-up with MRI. Thank you for your kind referral of this patient.
[2016-07-09 20:46] VITALS: BP 130/62
== END 2016-07-09 20:48 | disposition home or self-care (01) ==
LOC: EDBD 14:57 → M ED 15:47
DX: S00.93XA Contusion of unspecified part of head, initial encounter (principal); S50.01XA Contusion of right elbow, initial encounter; W18.30XA Fall on same level, unspecified, initial encounter; Y92.099 Unspecified place in other non-institutional residence as the place of occurrence of the external cause; Y93.89 Activity, other specified; Y99.9 Unspecified external cause status; M77.11 Lateral epicondylitis, right elbow; M77.01 Medial epicondylitis, right elbow; M11.221 Other chondrocalcinosis, right elbow; M47.892 Other spondylosis, cervical region; M47.893 Other spondylosis, cervicothoracic region; I63.9 Cerebral infarction, unspecified; Z79.82 Long term (current) use of aspirin; Z79.899 Other long term (current) drug therapy; Z88.8 Allergy status to other drugs, medicaments and biological substances

== ENCOUNTER → 2016-09-07 | Outpatient (REF) | payer MEDICARE, BC, OTHER ==
[~2016-09-07] MED LIST changes: +AMLO5TAB2 PO; +AMMO12CR4; +NORCOTAB PO; +SERT50TA PO; +VITATAB11 PO; +triamterene PO
[2016-09-07 14:44] LABS: BASO % 0.6 % (0.0-1.0); EOS # 0.4 K/mm3 (0.0-0.50); EOS % 6.6 % (0.0-3.0); LARGE UNSTAINED CELL # 0.1 K/mm3 (0.0-0.4); LARGE UNSTAINED CELL % 1.8 % (0.0-4.0); LYMPH # 1.6 K/mm3 (1.5-4.5); LYMPH % 26.2 % (24.0-44.0); MEAN CORPUSCULAR HEMOGLOBIN 32.2 pg (27.0-33.0); MEAN CORPUSCULAR HGB CONC 33.9 g/dl (32.0-36.5); MEAN CORPUSCULAR VOLUME 95.2 fl (80.0-96.0); MONO # 0.5 K/mm3 (0.0-0.8); MONO % 9.4 % (0.0-5.0); NEUTROPHILS # 3.1 K/mm3 (1.8-7.7); NEUTROPHILS % 55.3 % (36.0-66.0); PLATELET COUNT, AUTOMATED 299 k/mm3 (150-450); RED CELL DISTRIBUTION WIDTH 12.1 % (11.5-14.5); WHITE BLOOD COUNT 5.7 K/mm3 (4.0-10.0)
[2016-09-07 15:06] LABS: ALBUMIN 3.7 GM/DL (3.2-5.2); ALBUMIN/GLOBULIN RATIO 1.19 (1.00-1.93); ALKALINE PHOSPHATASE 98 U/L (45-117); ALT/SGPT 16 U/L (12-78); ANION GAP 7 MEQ/L (8-16); AST/SGOT 7 U/L (15-37); BILIRUBIN,TOTAL 0.3 MG/DL (0.2-1.0); BLOOD UREA NITROGEN 26 MG/DL (7-18); CALCIUM LEVEL 8.9 MG/DL (8.8-10.2); CARBON DIOXIDE LEVEL 28 MEQ/L (21-32); CHLORIDE LEVEL 104 MEQ/L (98-107); CREATININE FOR GFR 0.94 MG/DL (0.70-1.30); GLOMERULAR FILTRATION RATE > 60.0 (>35); GLUCOSE, FASTING 104 MG/DL (83-110); SODIUM LEVEL 139 MEQ/L (136-145); TOTAL PROTEIN 6.8 GM/DL (6.4-8.2)
== END ==
LOC: M LABNEURO 13:26
PROVIDERS: ATTEND Psychiatry & Neurology Neurology
DX: R55 Syncope and collapse (principal); Z13.29 Encounter for screening for other suspected endocrine disorder; R56.9 Unspecified convulsions; Z79.899 Other long term (current) drug therapy

== ENCOUNTER 2017-06-09 22:15 | Inpatient (IN) | payer MEDICARE, BC, OTHER ==
[2017-06-09] MEDS: NS 500 ML IV (22:30)
[2017-06-09 22:35] LABS: BASO % 0.5 % (0.0-1.0); EOS # 0.1 10^3/uL (0.0-0.50); EOS % 1.2 % (0.0-3.0); HEMATOCRIT 40.2 % (42.0-52.0); HEMOGLOBIN 13.9 g/dl (14.0-18.0); IMMATURE GRANULOCYTE % 0.5 % (0-3.0); LYMPH # 0.9 10^3/uL (1.5-4.5); LYMPH % 12.3 % (24.0-44.0); MEAN CORPUSCULAR HGB CONC 34.6 g/dl (32.0-36.5); MEAN CORPUSCULAR VOLUME 92.4 fl (80.0-96.0); MONO % 13.8 % (0.0-5.0); NEUTROPHILS # 5.4 10^3/uL (1.8-7.7); NEUTROPHILS % 71.7 % (36.0-66.0); PLATELET COUNT, AUTOMATED 243 10^3/uL (150-450); RED BLOOD COUNT 4.35 10^6/uL (4.30-6.10); RED CELL DISTRIBUTION WIDTH 11.7 % (11.5-14.5); WHITE BLOOD COUNT 7.5 10^3/uL (4.0-10.0)
[2017-06-09 23:01] LABS: AMMONIA 26 uMOL/L (<32)
[2017-06-09 23:09] LABS: LACTIC ACID SEPSIS PROTOCOL 2.5 MMOL/L (0.4-2.0)
[2017-06-09 23:10] LABS: ALBUMIN 3.6 GM/DL (3.2-5.2); ALBUMIN/GLOBULIN RATIO 1.03 (1.00-1.93); ALKALINE PHOSPHATASE 110 U/L (45-117); ALT/SGPT 13 U/L (12-78); ANION GAP 7 MEQ/L (8-16); AST/SGOT 18 U/L (7-37); BILIRUBIN,DIRECT < 0.1 MG/DL (0.0-0.2); BILIRUBIN,TOTAL 0.5 MG/DL (0.2-1.0); BLOOD UREA NITROGEN 14 MG/DL (7-18); CALCIUM LEVEL 8.6 MG/DL (8.8-10.2); CARBON DIOXIDE LEVEL 26 MEQ/L (21-32); CHLORIDE LEVEL 100 MEQ/L (98-107); CPK CREATINE PHOSPHOKINASE 89 U/L (39-308); CREATININE FOR GFR 0.77 MG/DL (0.70-1.30); GLOMERULAR FILTRATION RATE > 60.0 (>35); GLUCOSE, FASTING 101 MG/DL (70-100); POTASSIUM SERUM 4.7 MEQ/L (3.5-5.1); SODIUM LEVEL 133 MEQ/L (136-145); TOTAL PROTEIN 7.1 GM/DL (6.4-8.2); TROPONIN I < 0.02 NG/ML (< 0.10)
[2017-06-09 23:19] LABS: CK-MB VALUE MASS 1.1 NG/ML (0.0-3.6); MB/CK RELATIVE INDEX 1.23 (< OR =4); NT-PRO BNP 528 PG/ML (<450); THYROID STIMULATING HORMONE 0.558 uIU/ML (0.358-3.740)
[2017-06-09 23:57] LABS: INFLUENZA A AMPLIFICATION NEGATIVE (NEGATIVE); INFLUENZA B AMPLIFICATION NEGATIVE (NEGATIVE)
[2017-06-10] MEDS: NS 1,000 ML IV ×3 (00:05→22:47)
[2017-06-10] MEDS ORDERED: ACETAMINOPHEN TAB 650MG DOSE (2X325MG) PO (00:15)
[2017-06-10] MEDS: cloNIDine 0.2 MG TAB PO (00:36)
[2017-06-10 06:55] LABS: KETONE, URINE AUTO RFX NEGATIVE (NEGATIVE); LEUKOCYTE ESTERASE UR AUTO RFX NEGATIVE (NEGATIVE); MUCUS, URINE RFX SMALL (NEGATIVE); NITRITE, URINE AUTO RFX NEGATIVE (NEGATIVE); RBC, URINE AUTO RFX 9 /HPF (0-3); SPECIFIC GRAVITY UR AUTO RFX 1.015 (1.002-1.035); SQUAM EPITHELIAL CELL UR AURFX 0 /HPF (0-6); WBC, URINE AUTO RFX 0 /HPF (0-3)
[2017-06-10] MEDS: ASPIRIN 81 MG CHEW TABLET PO (08:29)
[2017-06-10] MEDS: HEPARIN SOD (PORCINE) 5000 UNITS/ML VIAL SC ×3 (08:29→21:49)
[2017-06-10] MEDS: CYANOCOBALAMIN 500 MCG TAB PO (08:29)
[2017-06-10] MEDS: levETIRAcetam 250MG TABLET (KEPPRA) PO ×2 (08:29→21:48)
[2017-06-10] MEDS: SENOKOT S TAB PO ×2 (08:30→21:48)
[2017-06-10] MEDS: FOLIC ACID 1 MG TAB PO (08:30)
[2017-06-10] MEDS: lamoTRIgine 100MG TAB PO ×2 (08:39→21:48)
[2017-06-10] MEDS ORDERED: CEFTRIAXONE SOD 1 GM in APPROPRIATE DILUENT 1 EA IV (09:00)
[2017-06-10] MEDS ORDERED: lamoTRIgine 100MG TAB PO ×2 (09:00)
[2017-06-10] MEDS: TELMISARTAN 20 MG TAB PO (21:49)
[2017-06-11 05:25] LABS: HEMATOCRIT 36.1 % (42.0-52.0); HEMOGLOBIN 12.6 g/dl (14.0-18.0); MEAN CORPUSCULAR HEMOGLOBIN 31.6 pg (27.0-33.0); MEAN CORPUSCULAR HGB CONC 34.9 g/dl (32.0-36.5); MEAN CORPUSCULAR VOLUME 90.5 fl (80.0-96.0); PLATELET COUNT, AUTOMATED 214 10^3/uL (150-450); RED BLOOD COUNT 3.99 10^6/uL (4.30-6.10); RED CELL DISTRIBUTION WIDTH 11.4 % (11.5-14.5); WHITE BLOOD COUNT 5.4 10^3/uL (4.0-10.0)
[2017-06-11 05:46] LABS: ANION GAP 9 MEQ/L (8-16); BLOOD UREA NITROGEN 17 MG/DL (7-18); CALCIUM LEVEL 8.4 MG/DL (8.8-10.2); CARBON DIOXIDE LEVEL 26 MEQ/L (21-32); CHLORIDE LEVEL 97 MEQ/L (98-107); CREATININE FOR GFR 0.81 MG/DL (0.70-1.30); GLOMERULAR FILTRATION RATE > 60.0 (>35); GLUCOSE, FASTING 106 MG/DL (70-100); MAGNESIUM LEVEL 1.8 MG/DL (1.8-2.4); POTASSIUM SERUM 3.6 MEQ/L (3.5-5.1); SODIUM LEVEL 132 MEQ/L (136-145)
[2017-06-11] MEDS: HEPARIN SOD (PORCINE) 5000 UNITS/ML VIAL SC ×3 (05:49→21:54)
[2017-06-11] MEDS: SENOKOT S TAB PO ×2 (09:51→21:54)
[2017-06-11] MEDS: amLODIPine 5 MG TAB PO (09:51)
[2017-06-11] MEDS: levETIRAcetam 250MG TABLET (KEPPRA) PO ×2 (09:51→21:54)
[2017-06-11] MEDS: FOLIC ACID 1 MG TAB PO (09:51)
[2017-06-11] MEDS: CYANOCOBALAMIN 500 MCG TAB PO (09:51)
[2017-06-11] MEDS: ASPIRIN 81 MG CHEW TABLET PO (09:51)
[2017-06-11] MEDS: lamoTRIgine 100MG TAB PO ×2 (09:51→21:54)
[2017-06-11] MEDS: TELMISARTAN 20 MG TAB PO (21:56)
[2017-06-12 05:45] LABS: HEMATOCRIT 37.2 % (42.0-52.0); HEMOGLOBIN 12.8 g/dl (14.0-18.0); MEAN CORPUSCULAR HEMOGLOBIN 31.4 pg (27.0-33.0); MEAN CORPUSCULAR HGB CONC 34.4 g/dl (32.0-36.5); MEAN CORPUSCULAR VOLUME 91.4 fl (80.0-96.0); PLATELET COUNT, AUTOMATED 210 10^3/uL (150-450); RED BLOOD COUNT 4.07 10^6/uL (4.30-6.10); RED CELL DISTRIBUTION WIDTH 11.4 % (11.5-14.5); WHITE BLOOD COUNT 5.4 10^3/uL (4.0-10.0)
[2017-06-12] MEDS: HEPARIN SOD (PORCINE) 5000 UNITS/ML VIAL SC ×3 (06:02→21:00)
[2017-06-12 06:04] LABS: ANION GAP 8 MEQ/L (8-16); BLOOD UREA NITROGEN 18 MG/DL (7-18); CALCIUM LEVEL 8.7 MG/DL (8.8-10.2); CARBON DIOXIDE LEVEL 27 MEQ/L (21-32); CHLORIDE LEVEL 99 MEQ/L (98-107); CREATININE FOR GFR 0.87 MG/DL (0.70-1.30); GLOMERULAR FILTRATION RATE > 60.0 (>35); GLUCOSE, FASTING 101 MG/DL (70-100); MAGNESIUM LEVEL 1.8 MG/DL (1.8-2.4); POTASSIUM SERUM 3.9 MEQ/L (3.5-5.1); SODIUM LEVEL 134 MEQ/L (136-145)
[2017-06-12] MEDS: ASPIRIN 81 MG CHEW TABLET PO (09:49)
[2017-06-12] MEDS: FOLIC ACID 1 MG TAB PO (09:50)
[2017-06-12] MEDS: levETIRAcetam 250MG TABLET (KEPPRA) PO ×2 (09:50→20:58)
[2017-06-12] MEDS: SENOKOT S TAB PO ×2 (09:50→20:57)
[2017-06-12] MEDS: lamoTRIgine 100MG TAB PO ×2 (09:50→20:57)
[2017-06-12] MEDS: amLODIPine 5 MG TAB PO (09:51)
[2017-06-12] MEDS: CYANOCOBALAMIN 500 MCG TAB PO (09:51)
[2017-06-12] MEDS: TELMISARTAN 20 MG TAB PO (20:57)
[2017-06-13] MEDS: HEPARIN SOD (PORCINE) 5000 UNITS/ML VIAL SC ×3 (06:00→21:55)
[2017-06-13 06:04] LABS: HEMATOCRIT 35.7 % (42.0-52.0); HEMOGLOBIN 12.3 g/dl (14.0-18.0); MEAN CORPUSCULAR HEMOGLOBIN 31.4 pg (27.0-33.0); MEAN CORPUSCULAR HGB CONC 34.5 g/dl (32.0-36.5); MEAN CORPUSCULAR VOLUME 91.1 fl (80.0-96.0); PLATELET COUNT, AUTOMATED 226 10^3/uL (150-450); RED BLOOD COUNT 3.92 10^6/uL (4.30-6.10); RED CELL DISTRIBUTION WIDTH 11.5 % (11.5-14.5); WHITE BLOOD COUNT 6.6 10^3/uL (4.0-10.0)
[2017-06-13 06:26] LABS: ANION GAP 9 MEQ/L (8-16); BLOOD UREA NITROGEN 17 MG/DL (7-18); CALCIUM LEVEL 8.2 MG/DL (8.8-10.2); CARBON DIOXIDE LEVEL 26 MEQ/L (21-32); CHLORIDE LEVEL 101 MEQ/L (98-107); CREATININE FOR GFR 0.83 MG/DL (0.70-1.30); GLOMERULAR FILTRATION RATE > 60.0 (>35); GLUCOSE, FASTING 97 MG/DL (70-100); MAGNESIUM LEVEL 1.8 MG/DL (1.8-2.4); POTASSIUM SERUM 4.5 MEQ/L (3.5-5.1); SODIUM LEVEL 136 MEQ/L (136-145)
[2017-06-13] MEDS: lamoTRIgine 100MG TAB PO ×2 (08:27→21:54)
[2017-06-13] MEDS: levETIRAcetam 250MG TABLET (KEPPRA) PO ×2 (08:27→21:54)
[2017-06-13] MEDS: FOLIC ACID 1 MG TAB PO (08:27)
[2017-06-13] MEDS: SENOKOT S TAB PO ×2 (08:27→21:55)
[2017-06-13] MEDS: ASPIRIN 81 MG CHEW TABLET PO (08:27)
[2017-06-13] MEDS: CYANOCOBALAMIN 500 MCG TAB PO (08:28)
[2017-06-13] MEDS: amLODIPine 5 MG TAB PO (08:28)
[2017-06-13] MEDS: TELMISARTAN 20 MG TAB PO (21:54)
[2017-06-14] MEDS: HEPARIN SOD (PORCINE) 5000 UNITS/ML VIAL SC ×3 (05:19→21:36)
[2017-06-14 06:27] LABS: HEMATOCRIT 35.4 % (42.0-52.0); HEMOGLOBIN 12.2 g/dl (14.0-18.0); MEAN CORPUSCULAR HEMOGLOBIN 31.9 pg (27.0-33.0); MEAN CORPUSCULAR HGB CONC 34.5 g/dl (32.0-36.5); MEAN CORPUSCULAR VOLUME 92.4 fl (80.0-96.0); PLATELET COUNT, AUTOMATED 229 10^3/uL (150-450); RED BLOOD COUNT 3.83 10^6/uL (4.30-6.10); RED CELL DISTRIBUTION WIDTH 11.5 % (11.5-14.5)
[2017-06-14 06:46] LABS: ANION GAP 7 MEQ/L (8-16); BLOOD UREA NITROGEN 20 MG/DL (7-18); CALCIUM LEVEL 8.6 MG/DL (8.8-10.2); CARBON DIOXIDE LEVEL 27 MEQ/L (21-32); CHLORIDE LEVEL 102 MEQ/L (98-107); GLOMERULAR FILTRATION RATE > 60.0 (>35); GLUCOSE, FASTING 100 MG/DL (70-100); MAGNESIUM LEVEL 2.2 MG/DL (1.8-2.4); POTASSIUM SERUM 4.5 MEQ/L (3.5-5.1); SODIUM LEVEL 136 MEQ/L (136-145)
[2017-06-14] MEDS: FOLIC ACID 1 MG TAB PO (09:18)
[2017-06-14] MEDS: CYANOCOBALAMIN 500 MCG TAB PO (09:18)
[2017-06-14] MEDS: lamoTRIgine 100MG TAB PO ×2 (09:18→21:36)
[2017-06-14] MEDS: ASPIRIN 81 MG CHEW TABLET PO (09:18)
[2017-06-14] MEDS: SENOKOT S TAB PO ×2 (09:18→21:36)
[2017-06-14] MEDS: levETIRAcetam 250MG TABLET (KEPPRA) PO ×2 (09:18→21:35)
[2017-06-14] MEDS: amLODIPine 5 MG TAB PO (09:19)
[2017-06-14 10:31] LABS: BEDSIDE GLUCOSE 175 MG/DL (83-110)
[2017-06-14] MEDS: NS 500 ML IV (10:59)
[2017-06-14] MEDS: TELMISARTAN 20 MG TAB PO (21:35)
[2017-06-15] MEDS: HEPARIN SOD (PORCINE) 5000 UNITS/ML VIAL SC ×3 (05:18→22:00)
[2017-06-15 06:15] LABS: HEMOGLOBIN 11.8 g/dl (14.0-18.0); MEAN CORPUSCULAR HEMOGLOBIN 31.1 pg (27.0-33.0); MEAN CORPUSCULAR HGB CONC 33.7 g/dl (32.0-36.5); MEAN CORPUSCULAR VOLUME 92.1 fl (80.0-96.0); PLATELET COUNT, AUTOMATED 257 10^3/uL (150-450); RED CELL DISTRIBUTION WIDTH 11.4 % (11.5-14.5); WHITE BLOOD COUNT 6.4 10^3/uL (4.0-10.0)
[2017-06-15 06:32] LABS: ANION GAP 8 MEQ/L (8-16); BLOOD UREA NITROGEN 23 MG/DL (7-18); CALCIUM LEVEL 8.7 MG/DL (8.8-10.2); CARBON DIOXIDE LEVEL 26 MEQ/L (21-32); CHLORIDE LEVEL 102 MEQ/L (98-107); CREATININE FOR GFR 0.86 MG/DL (0.70-1.30); GLOMERULAR FILTRATION RATE > 60.0 (>35); GLUCOSE, FASTING 97 MG/DL (70-100); MAGNESIUM LEVEL 2.1 MG/DL (1.8-2.4); POTASSIUM SERUM 4.5 MEQ/L (3.5-5.1); SODIUM LEVEL 136 MEQ/L (136-145)
[2017-06-15] MEDS: levETIRAcetam 250MG TABLET (KEPPRA) PO ×2 (08:26→22:00)
[2017-06-15] MEDS: SENOKOT S TAB PO ×2 (08:26→22:00)
[2017-06-15] MEDS: lamoTRIgine 100MG TAB PO ×2 (08:26→22:00)
[2017-06-15] MEDS: CYANOCOBALAMIN 500 MCG TAB PO (08:26)
[2017-06-15] MEDS: ASPIRIN 81 MG CHEW TABLET PO (08:26)
[2017-06-15] MEDS: FOLIC ACID 1 MG TAB PO (08:26)
[2017-06-15] MEDS: TELMISARTAN 20 MG TAB PO (22:00)
[2017-06-16] MEDS: HEPARIN SOD (PORCINE) 5000 UNITS/ML VIAL SC ×3 (06:01→20:44)
[2017-06-16 06:39] LABS: HEMATOCRIT 34.5 % (42.0-52.0); HEMOGLOBIN 11.8 g/dl (14.0-18.0); MEAN CORPUSCULAR HEMOGLOBIN 31.1 pg (27.0-33.0); MEAN CORPUSCULAR HGB CONC 34.2 g/dl (32.0-36.5); PLATELET COUNT, AUTOMATED 281 10^3/uL (150-450); RED BLOOD COUNT 3.79 10^6/uL (4.30-6.10); RED CELL DISTRIBUTION WIDTH 11.6 % (11.5-14.5); WHITE BLOOD COUNT 7.1 10^3/uL (4.0-10.0)
[2017-06-16 06:56] LABS: ANION GAP 8 MEQ/L (8-16); BLOOD UREA NITROGEN 20 MG/DL (7-18); CALCIUM LEVEL 8.8 MG/DL (8.8-10.2); CARBON DIOXIDE LEVEL 24 MEQ/L (21-32); CHLORIDE LEVEL 103 MEQ/L (98-107); CREATININE FOR GFR 0.82 MG/DL (0.70-1.30); GLOMERULAR FILTRATION RATE > 60.0 (>35); GLUCOSE, FASTING 93 MG/DL (70-100); MAGNESIUM LEVEL 2.3 MG/DL (1.8-2.4); POTASSIUM SERUM 4.3 MEQ/L (3.5-5.1); SODIUM LEVEL 135 MEQ/L (136-145)
[2017-06-16] MEDS: ASPIRIN 81 MG CHEW TABLET PO (09:54)
[2017-06-16] MEDS: SENOKOT S TAB PO ×2 (09:54→20:44)
[2017-06-16] MEDS: levETIRAcetam 250MG TABLET (KEPPRA) PO ×2 (09:55→20:45)
[2017-06-16] MEDS: FOLIC ACID 1 MG TAB PO (09:55)
[2017-06-16] MEDS: lamoTRIgine 100MG TAB PO ×2 (09:55→20:44)
[2017-06-16] MEDS: CYANOCOBALAMIN 500 MCG TAB PO (09:55)
[2017-06-16] MEDS: TELMISARTAN 20 MG TAB PO (20:44)
[2017-06-17] MEDS: HEPARIN SOD (PORCINE) 5000 UNITS/ML VIAL SC ×2 (05:16→15:16)
[2017-06-17 05:59] LABS: HEMATOCRIT 34.5 % (42.0-52.0); HEMOGLOBIN 11.9 g/dl (14.0-18.0); MEAN CORPUSCULAR HEMOGLOBIN 31.8 pg (27.0-33.0); MEAN CORPUSCULAR HGB CONC 34.5 g/dl (32.0-36.5); MEAN CORPUSCULAR VOLUME 92.2 fl (80.0-96.0); PLATELET COUNT, AUTOMATED 290 10^3/uL (150-450); RED BLOOD COUNT 3.74 10^6/uL (4.30-6.10); RED CELL DISTRIBUTION WIDTH 11.5 % (11.5-14.5)
[2017-06-17 06:25] LABS: ANION GAP 9 MEQ/L (8-16); BLOOD UREA NITROGEN 24 MG/DL (7-18); CALCIUM LEVEL 8.7 MG/DL (8.8-10.2); CARBON DIOXIDE LEVEL 24 MEQ/L (21-32); CHLORIDE LEVEL 103 MEQ/L (98-107); CREATININE FOR GFR 0.88 MG/DL (0.70-1.30); GLOMERULAR FILTRATION RATE > 60.0 (>35); GLUCOSE, FASTING 100 MG/DL (70-100); MAGNESIUM LEVEL 2.3 MG/DL (1.8-2.4); POTASSIUM SERUM 4.4 MEQ/L (3.5-5.1); SODIUM LEVEL 136 MEQ/L (136-145)
[2017-06-17] MEDS: SENOKOT S TAB PO (10:36)
[2017-06-17] MEDS: ASPIRIN 81 MG CHEW TABLET PO (10:36)
[2017-06-17] MEDS: FOLIC ACID 1 MG TAB PO (10:36)
[2017-06-17] MEDS: levETIRAcetam 250MG TABLET (KEPPRA) PO (10:37)
[2017-06-17] MEDS: CYANOCOBALAMIN 500 MCG TAB PO (10:37)
[2017-06-17] MEDS: lamoTRIgine 100MG TAB PO (10:37)
== END 2017-06-17 18:33 | disposition home health service (06) | DRG 203 ==
LOC: M ED 22:15 → M ED INP 22:16 → M MSPAV 06-10 14:09
DX: J20.5 Acute bronchitis due to respiratory syncytial virus (principal); R53.1 Weakness; Z66 Do not resuscitate; G40.909 Epilepsy, unspecified, not intractable, without status epilepticus; Z86.73 Personal history of transient ischemic attack (TIA), and cerebral infarction without residual deficits; Z85.72 Personal history of non-Hodgkin lymphomas; Z92.21 Personal history of antineoplastic chemotherapy; Z87.891 Personal history of nicotine dependence; Z79.82 Long term (current) use of aspirin; Z79.899 Other long term (current) drug therapy

== ENCOUNTER 2017-10-26 12:44 | Inpatient (IN) | payer MEDICARE, BC, OTHER ==
[2017-10-26 13:51] LABS: BASO % 0.5 % (0.0-1.0); EOS # 0.1 10^3/uL (0.0-0.50); EOS % 1.8 % (0.0-3.0); HEMATOCRIT 40.4 % (42.0-52.0); HEMOGLOBIN 13.9 g/dl (13.5-17.5); IMMATURE GRANULOCYTE % 0.5 % (0-3.0); LYMPH # 1.2 10^3/uL (1.5-4.5); LYMPH % 18.6 % (24.0-44.0); MEAN CORPUSCULAR HGB CONC 34.4 g/dl (32.0-36.5); MONO # 0.7 10^3/uL (0.0-0.8); MONO % 10.4 % (0.0-5.0); NEUTROPHILS # 4.5 10^3/uL (1.8-7.7); NEUTROPHILS % 68.2 % (36.0-66.0); PLATELET COUNT, AUTOMATED 242 10^3/uL (150-450); RED BLOOD COUNT 4.49 10^6/uL (4.30-6.10); RED CELL DISTRIBUTION WIDTH 12.2 % (11.5-14.5); WHITE BLOOD COUNT 6.6 10^3/uL (4.0-10.0)
[2017-10-26 14:06] LABS: LACTIC ACID SEPSIS PROTOCOL 1.7 MMOL/L (0.4-2.0)
[2017-10-26 14:07] LABS: ABG BASE EXCESS 0.6 (-2.0-2.0); ABG HCO3 24.6 MEQ/L (22.0-26.0); ABG PARTIAL PRESSURE CO2 37.4 mmHg (35.0-45.0); ABG PARTIAL PRESSURE O2 71.5 mmHg (75.0-100.0); ABG TOTAL CO2 25.8 MEQ/L (23.0-31.0); ABG pH (ARTERIAL) 7.436 UNITS (7.350-7.450)
[2017-10-26 14:14] LABS: ALBUMIN 3.6 GM/DL (3.2-5.2); ALBUMIN/GLOBULIN RATIO 1.03 (1.00-1.93); ALKALINE PHOSPHATASE 92 U/L (45-117); ALT/SGPT 16 U/L (12-78); ANION GAP 7 MEQ/L (8-16); AST/SGOT 9 U/L (7-37); BILIRUBIN,DIRECT 0.1 MG/DL (0.0-0.2); BILIRUBIN,TOTAL 0.4 MG/DL (0.2-1.0); BLOOD UREA NITROGEN 15 MG/DL (7-18); CARBON DIOXIDE LEVEL 28 MEQ/L (21-32); CHLORIDE LEVEL 102 MEQ/L (98-107); CPK CREATINE PHOSPHOKINASE 52 U/L (39-308); CREATININE FOR GFR 1.06 MG/DL (0.70-1.30); GLOMERULAR FILTRATION RATE > 60.0 (>35); GLUCOSE, FASTING 101 MG/DL (70-100); POTASSIUM SERUM 3.9 MEQ/L (3.5-5.1); SODIUM LEVEL 137 MEQ/L (136-145); TOTAL PROTEIN 7.1 GM/DL (6.4-8.2); TROPONIN I < 0.02 NG/ML (< 0.10)
[2017-10-26 14:16] LABS: AMMONIA 12 uMOL/L (<32)
[2017-10-26 14:19] LABS: CK-MB VALUE MASS 1.4 NG/ML (<3.6); MB/CK RELATIVE INDEX 2.69 (< OR =4); THYROID STIMULATING HORMONE 0.562 uIU/ML (0.358-3.740)
[2017-10-26] MEDS: LABETALOL HCL 100 MG/20 ML VIAL IV (19:35)
[2017-10-26] MEDS: amLODIPine 5 MG TAB PO (22:00)
[2017-10-26] MEDS ORDERED: ACETAMINOPHEN TAB 650MG DOSE (2X325MG) PO (22:00)
[2017-10-26] MEDS ORDERED: BISACODYL 5 MG TAB PO (22:00)
[2017-10-27] MEDS: lamoTRIgine 100MG TAB PO ×4 (00:15→10:04)
[2017-10-27 05:39] LABS: HEMATOCRIT 36.4 % (42.0-52.0); HEMOGLOBIN 12.5 g/dl (13.5-17.5); MEAN CORPUSCULAR HEMOGLOBIN 30.4 pg (27.0-33.0); MEAN CORPUSCULAR HGB CONC 34.3 g/dl (32.0-36.5); MEAN CORPUSCULAR VOLUME 88.6 fl (80.0-96.0); PLATELET COUNT, AUTOMATED 223 10^3/uL (150-450); RED BLOOD COUNT 4.11 10^6/uL (4.30-6.10); RED CELL DISTRIBUTION WIDTH 11.9 % (11.5-14.5); WHITE BLOOD COUNT 6.3 10^3/uL (4.0-10.0)
[2017-10-27] MEDS: HEPARIN SOD (PORCINE) 5000 UNITS/ML VIAL SC (05:47)
[2017-10-27 06:00] LABS: ANION GAP 8 MEQ/L (8-16); BLOOD UREA NITROGEN 15 MG/DL (7-18); CALCIUM LEVEL 8.5 MG/DL (8.8-10.2); CARBON DIOXIDE LEVEL 26 MEQ/L (21-32); CHLORIDE LEVEL 103 MEQ/L (98-107); GLOMERULAR FILTRATION RATE > 60.0 (>35); GLUCOSE, FASTING 92 MG/DL (70-100); POTASSIUM SERUM 3.8 MEQ/L (3.5-5.1); SODIUM LEVEL 137 MEQ/L (136-145)
[2017-10-27 07:01] LABS: C REACTIVE PROTEIN QUANTITATIV 0.59 MG/DL (0.00-0.30)
[2017-10-27 07:23] LABS: ERYTHROCYTE SEDIMENTATION RATE 21 mm/hr (0-20)
[2017-10-27] MEDS: FOLIC ACID 1 MG TAB PO (09:09)
[2017-10-27] MEDS: CYANOCOBALAMIN 500 MCG TAB PO (09:09)
[2017-10-27] MEDS: ASPIRIN 81 MG ENTERIC TAB PO (09:10)
[2017-10-27] MEDS: LOSARTAN 50 MG TAB PO (09:10)
[2017-10-27] MEDS: amLODIPine 10 MG TAB PO (09:10)
== END 2017-10-27 11:47 | DRG 305 ==
LOC: M ED 12:44 → M ED INP 22:04 → M PCU 23:31
DX: I16.0 Hypertensive urgency (principal); I10 Essential (primary) hypertension; I69.322 Dysarthria following cerebral infarction; R53.81 Other malaise; G40.909 Epilepsy, unspecified, not intractable, without status epilepticus; J44.9 Chronic obstructive pulmonary disease, unspecified; E53.8 Deficiency of other specified B group vitamins; I73.9 Peripheral vascular disease, unspecified; Z79.82 Long term (current) use of aspirin; Z79.899 Other long term (current) drug therapy; Z88.8 Allergy status to other drugs, medicaments and biological substances; Z85.72 Personal history of non-Hodgkin lymphomas